=== PATIENT | female | born 1990 | race Caucasian/White ===

== ENCOUNTER 2017-01-15 14:07 | Emergency (ER) | payer OTHER ==
[2017-01-15 14:15] VITALS: BP 118/64
[2017-01-15] MEDS ORDERED: BUPIVACAINE 0.5% PF 30 ML VIAL ONE (14:21)
--- NOTE | 2017-01-15 15:07 | ED Physician Documentation ---
History of Present Illness - Stated complaint Stated Complaint: R FOOT SWOLLEN - Chief complaint Chief Complaint: General - History obtained from History obtained from: Patient - History of Present Illness Timing: How many weeks ago (8) - Additonal information Additional information: 26 y/o female with chronically ingrown toenails has developed an ingrown nail on the right great toe that has become inflamed painful and disfigured. She has worse pain at night after she has been on her feet working at the [employer] all day. Review of Systems Constitutional: denies: Fever, Chills Nose: denies: Congestion Throat: denies: Sore throat Respiratory: denies: Cough GI: denies: Vomiting PD PAST MEDICAL HISTORY - Past Medical History Neuro: Headache/migraine Psych: Depression Musculoskeletal: Fibromyalgia - Past Surgical History Past Surgical History: No - Present Medications Home Medications: Ambulatory Orders Medication Instructions Recorded Confirmed Sulfamethoxazole/Trimethoprim 1 each PO BID #10 tablet 01/15/17 [Sulfamethoxazole-Tmp Ds Tablet] - Allergies Allergies/Adverse Reactions: Allergies Allergy/AdvReac Type Severity Reaction Status Date / Time Penicillins AdvReac Unknown Verified 01/15/17 14:15 - Social History Does the pt smoke?: No Smoking Status: Former smoker Does the pt drink ETOH?: Yes ETOH Use: Beer Does the pt have substance abuse?: No - Immunizations Immunizations are current?: Yes PD ED PE NORMAL - Vitals Vital signs reviewed: Yes (normal ) - General General: Alert and oriented X 3, No acute distress, Well developed/nourished - HEENT HEENT: Atraumatic, PERRL - Respiratory Respiratory: No respiratory distress - Derm Derm: Normal color, Warm and dry, No rash - Extremities Extremities: Other (There is an ingrown right great toenail with reactive tissue formation over the dorsum of the nail. There is no proximal extension of infection. ) - Neuro Neuro: Alert and oriented X 3, No motor deficit, No sensory deficit, Normal speech - Psych Psych: Normal mood, Normal affect Results - Vitals Vitals: Vital Signs - 24 hr 01/15/17 14:13 Temperature 36.8 C Heart Rate 86 Respiratory 16 Rate Blood Pressure 118/64 O2 Saturation 100 Oxygen O2 Source Room air Procedures - General procedure General procedure: INGROWN TOENAIL: on the right foot a digital block is performed with 0.5% bupivicaine with excellent anesthesia attained. The toe is cleaned hebicleanse and saline and a sectioning plier is used to section the toe about [address] and the ingrown portion is removed. The patient tolerates the procedure well and a dressing is applied. PD MEDICAL DECISION MAKING - ED course Complexity details: re-evaluated patient, considered differential, d/w patient ED course: 26 y/o female with an ingrown toenail is treated in the ED with sectioning of the nail and this is well tolerated. Departure - Departure Disposition: 01 Home, Self Care Clinical Impression: Ingrown right big toenail Condition: Stable Instructions: ED Ingrown Toenail Excised Follow-Up: [facility] [Provider Group] Prescriptions: Sulfamethoxazole/Trimethoprim [Sulfamethoxazole-Tmp Ds Tablet] 1 each PO BID # 10 tablet Forms: Activity restrictions
== END 2017-01-15 15:24 | disposition home or self-care (01) ==
LOC: ED 14:07
DX: L60.0 Ingrowing nail (principal); Z87.891 Personal history of nicotine dependence
CPT/HCPCS: 11765; 99283